=== PATIENT | female | born 1985 | race Caucasian/White ===

== ENCOUNTER 2019-12-28 13:06 | Emergency (ER) | payer MEDICAID ==
[~2019-12-28] VITALS: Ht 170.2 cm; Wt 102.0 kg
[2019-12-28 13:14] VITALS: BP 147/75
[2019-12-28] MEDS ORDERED: ketorolac tromethamine 15mg/ml inj. IM ONE (14:10)
[2019-12-28] MEDS ORDERED: orphenadrine citrate 60mg/2ml inj. IM ONE (14:10)
[2019-12-28] MEDS ORDERED: IBUP-1984 PO (14:12)
[2019-12-28] MEDS ORDERED: CYCL-1 PO (14:12)
== END 2019-12-28 14:43 | disposition home or self-care (01) ==
LOC: ER 13:06
DX: S39.012A Strain of muscle, fascia and tendon of lower back, initial encounter (principal); Z79.899 Other long term (current) drug therapy; Z72.89 Other problems related to lifestyle; X50.0XXA Overexertion from strenuous movement or load, initial encounter; Y93.89 Activity, other specified; Y92.89 Other specified places as the place of occurrence of the external cause; Y99.8 Other external cause status
CPT/HCPCS: 96372; 99284; J1885; J2360